=== PATIENT | male | born 1980 | race Caucasian/White ===

== ENCOUNTER 2017-03-11 20:22 | Inpatient (IN) | payer BC, OTHER ==
[~2017-03-11] VITALS: Ht 185.4 cm; Wt 79.4 kg
[2017-03-11] MEDS ORDERED: BUPRENORPHINE HCL 2 MG TAB.SUBL SL PRN (22:15)
[2017-03-11] MEDS ORDERED: HYDROXYZINE PAMOATE 25 MG CAPSULE PO PRN (22:15)
[2017-03-11] MEDS ORDERED: THIAMINE HCL 200 MG/2 ML VIAL IM ONE (22:15)
[2017-03-11] MEDS ORDERED: CLONIDINE HCL 0.1 MG TABLET PO PRN (22:15)
[2017-03-11] MEDS ORDERED: METHOCARBAMOL 750 MG TABLET PO PRN (22:15)
[2017-03-11] MEDS ORDERED: ONDANSETRON ODT 4 MG TAB.RAPDIS SL PRN (22:15)
[2017-03-11] MEDS ORDERED: IBUPROFEN 400 MG TABLET PO PRN (22:15)
[2017-03-11] MEDS ORDERED: MIRALAX 17 GM POWD.PACK PO PRN (22:15)
[2017-03-11] MEDS ORDERED: MAG HYDROX/AL HYDROX/SIMETH 30 ML LIQUID UDC PO PRN (22:15)
[2017-03-11] MEDS ORDERED: LOPERAMIDE HCL 2 MG CAPSULE PO PRN ×2 (22:15)
[2017-03-11] MEDS ORDERED: LORAZEPAM 2 MG/1 ML VIAL IM PRN (22:15)
[2017-03-11] MEDS ORDERED: DICYCLOMINE HCL 20 MG TABLET PO PRN (22:15)
[2017-03-11] MEDS ORDERED: LORAZEPAM 1 MG TABLET PO PRN ×2 (22:15)
[2017-03-11] MEDS ORDERED: MAGNESIUM HYDROXIDE 30 ML LIQUID UDC PO PRN (22:15)
[2017-03-11] MEDS ORDERED: diphenhydrAMINE 50 MG CAPSULE PO PRN (22:15)
[2017-03-11] MEDS ORDERED: ACETAMINOPHEN 325 MG TABLET PO PRN (22:15)
[2017-03-11 22:50] LABS: BASOPHILS # (AUTO) 0.1 K/uL (0.0-8.0); BASOPHILS % (AUTO) 0.9 % (0.0-2.0); EOSINOPHILS # (AUTO) 0.5 K/uL (0.0-0.7); EOSINOPHILS % (AUTO) 7.3 % (0.0-7.0); HEMATOCRIT 42.9 % (40-50); HEMOGLOBIN 14.5 G/DL (14.0-18.0); LYMPHOCYTES # (AUTO) 1.8 K/UL (0.8-4.8); LYMPHOCYTES % (AUTO) 28.5 % (20.5-51.5); MEAN CORPUSCULAR HEMOGLOBIN 31.5 UUG (27.0-31.0); MEAN CORPUSCULAR HGB CONC 34 g/dL (32.0-37.0); MEAN CORPUSCULAR VOLUME 93.4 FL (82.0-92.0); MONOCYTES % (AUTO) 15.8 % (0.0-11.0); NEUTROPHILS # (AUTO) 3.1 K/UL (1.8-8.9); NEUTROPHILS % (AUTO) 47.5 % (38.5-71.5); PLATELET COUNT (AUTO) 136 K/UL (150-450); RED BLOOD CELL COUNT(AUTO) 4.59 MIL/UL (4.7-6.1); WHITE BLOOD COUNT (AUTO) 6.5 K/UL (4.0-11.2)
[2017-03-11 23:18] LABS: ALANINE AMINOTRANSFERASE 78 U/L (16-63); ALKALINE PHOSPHATASE 57 U/L (50-136); AMYLASE 29 U/L (25-115); ASPARTATE AMINOTRANSFERASE 114 U/L (15-37); BILIRUBIN,TOTAL 0.7 mg/dL (0.2-1.0); CARBON DIOXIDE 34 mmol/L (21-32); CHLORIDE 100 mmol/L (98-107); CREATININE 1.3 mg/dL (0.6-1.3); GLUCOSE 75 mg/dL (74-106); LIPASE 62 U/L (73-393); MAGNESIUM 1.9 mg/dL (1.8-2.4); POTASSIUM 4.5 mmol/L (3.5-5.1); TOTAL PROTEIN, SERUM 7.4 g/dL (6.4-8.2); UREA NITROGEN, BLOOD 20 mg/dL (7-18)
[2017-03-11 23:19] LABS: ETHANOL < 3 MG/DL (0-0)
[2017-03-11 23:23] LABS: THYROID STIMULATING HORMONE 2.603 mIU/mL (0.358-3.740)
[2017-03-11] MEDS ORDERED: GABA800T2 PO (23:40)
[2017-03-11] MEDS ORDERED: OXCA300T PO (23:40)
[2017-03-11] MEDS ORDERED: ALBU0.63 NEB (23:49)
[2017-03-12] VITALS (7 sets, daily range): BP systolic 84–114; BP diastolic 56–73
[2017-03-12 00:40] LABS: BAND % (MANUAL) 2 % (0-10); EOSINOPHILS % (MANUAL) 4 % (0-8); LYMPHOCYTES % (MANUAL) 31 % (20-40); MONOCYTES % (MANUAL) 13 % (2-10); NEUTROPHILS % (MANUAL) 50 % (42-75)
[2017-03-12] MEDS ORDERED: TUBERCULIN,PURIF.PROT.DERIV. 5 TU/0.1 ML TEST ID ONE (09:00)
[2017-03-12] MEDS ORDERED: OXCARBAZEPINE 300 MG TABLET PO SCH (09:45)
[2017-03-12] MEDS ORDERED: DIAZEPAM 5 MG TABLET PO PRN (09:45)
[2017-03-12] MEDS ORDERED: DIAZEPAM 10 MG TABLET PO PRN ×2 (09:45)
[2017-03-12] MEDS ORDERED: ALBUTEROL SULFATE 2.5 MG/ 0.5 ML NEBU NEB PRN (09:45)
[2017-03-12 10:18] LABS: *AMPHETAMINE, URINE POSITIVE (NEGATIVE); *BARBITURATE, URINE POSITIVE (NEGATIVE); *CANNABINOID, URINE NEGATIVE (NEGATIVE); *COCCAINE, URINE NEGATIVE (NEGATIVE); *OPIATE, URINE POSITIVE (NEGATIVE); *PHENCYCLIDINE SCREEN,URINE NEGATIVE (NEGATIVE)
[2017-03-12] MEDS: GABAPENTIN 400 MG CAPSULE PO SCH ×3 (10:41→21:10)
[2017-03-12] MEDS: DIAZEPAM 10 MG TABLET PO SCH ×4 (10:41→21:11)
[2017-03-12] MEDS: FOLIC ACID 1 MG TABLET PO SCH (10:41)
[2017-03-12] MEDS: THIAMINE HCL 100 MG TABLET PO SCH (10:41)
[2017-03-12] MEDS: MULTIVITAMINS,THERAPEUTIC TABLET PO SCH (10:42)
[2017-03-12] MEDS ORDERED: DIAZEPAM 10 MG TABLET ONE (10:46)
[2017-03-12] MEDS: BUPRENORPHINE HCL 2 MG TAB.SUBL SL SCH ×3 (14:00→21:10)
[2017-03-12] MEDS: OXCARBAZEPINE 150 MG TABLET PO SCH (17:03)
[2017-03-13] VITALS: BP 108/66
[2017-03-13 04:00] VITALS: BP 104/72
[2017-03-13 08:00] VITALS: BP 127/74
[2017-03-13] MEDS: DIAZEPAM 10 MG TABLET PO SCH ×3 (08:44→20:57)
[2017-03-13] MEDS: MULTIVITAMINS,THERAPEUTIC TABLET PO SCH (08:44)
[2017-03-13] MEDS: GABAPENTIN 400 MG CAPSULE PO SCH ×3 (08:44→20:58)
[2017-03-13] MEDS: FOLIC ACID 1 MG TABLET PO SCH (08:45)
[2017-03-13] MEDS: BUPRENORPHINE HCL 2 MG TAB.SUBL SL SCH ×3 (08:45→20:58)
[2017-03-13] MEDS: THIAMINE HCL 100 MG TABLET PO SCH (08:45)
[2017-03-13] MEDS: OXCARBAZEPINE 150 MG TABLET PO SCH ×2 (08:45→17:18)
[2017-03-13 12:00] VITALS: BP 121/78
[2017-03-13 13:10] LABS: HEPATITIS B SURFACE AG Negative (Negative)
[2017-03-13 16:00] VITALS: BP 116/71
[2017-03-13 20:00] VITALS: BP 118/74
[2017-03-14] VITALS: BP 115/73
[2017-03-14 04:00] VITALS: BP 103/67
[2017-03-14 08:00] VITALS: BP 107/65
[2017-03-14] MEDS: OXCARBAZEPINE 150 MG TABLET PO SCH ×2 (08:57→16:42)
[2017-03-14] MEDS: GABAPENTIN 400 MG CAPSULE PO SCH ×3 (08:57→21:36)
[2017-03-14] MEDS: FOLIC ACID 1 MG TABLET PO SCH (08:58)
[2017-03-14] MEDS: MULTIVITAMINS,THERAPEUTIC TABLET PO SCH (08:58)
[2017-03-14] MEDS: DIAZEPAM 5 MG TABLET PO SCH ×4 (08:58→21:36)
[2017-03-14] MEDS: THIAMINE HCL 100 MG TABLET PO SCH (08:58)
[2017-03-14] MEDS ORDERED: BUPRENORPHINE HCL 2 MG TAB.SUBL SL SCH (09:00)
[2017-03-14 12:00] VITALS: BP 102/78
[2017-03-14] MEDS: BUPRENORPHINE HCL 2 MG TAB.SUBL SL SCH ×2 (15:05→21:37)
[2017-03-14 16:00] VITALS: BP 111/80
[2017-03-14 20:11] VITALS: BP 110/66
[2017-03-15] VITALS: BP 106/53
[2017-03-15 04:00] VITALS: BP 108/72
[2017-03-15 08:00] VITALS: BP 112/72
[2017-03-15] MEDS: GABAPENTIN 400 MG CAPSULE PO SCH ×3 (08:24→21:44)
[2017-03-15] MEDS: THIAMINE HCL 100 MG TABLET PO SCH (08:24)
[2017-03-15] MEDS: BUPRENORPHINE HCL 2 MG TAB.SUBL SL SCH ×3 (08:25→21:44)
[2017-03-15] MEDS: OXCARBAZEPINE 150 MG TABLET PO SCH ×2 (08:25→16:23)
[2017-03-15] MEDS: DIAZEPAM 5 MG TABLET PO SCH ×3 (08:25→21:44)
[2017-03-15] MEDS: FOLIC ACID 1 MG TABLET PO SCH (08:25)
[2017-03-15] MEDS: MULTIVITAMINS,THERAPEUTIC TABLET PO SCH (08:25)
[2017-03-15 12:00] VITALS: BP 97/56
[2017-03-15 16:00] VITALS: BP 116/65
[2017-03-15 20:00] VITALS: BP 117/77
[2017-03-16] VITALS: BP 102/73
[2017-03-16 04:00] VITALS: BP 104/72
[2017-03-16 08:00] VITALS: BP 99/64
[2017-03-16] MEDS: GABAPENTIN 400 MG CAPSULE PO SCH ×2 (08:22→14:00)
[2017-03-16] MEDS: FOLIC ACID 1 MG TABLET PO SCH (08:22)
[2017-03-16] MEDS: THIAMINE HCL 100 MG TABLET PO SCH (08:22)
[2017-03-16] MEDS: MULTIVITAMINS,THERAPEUTIC TABLET PO SCH (08:22)
[2017-03-16] MEDS: OXCARBAZEPINE 150 MG TABLET PO SCH ×2 (08:22→16:53)
[2017-03-16 08:24] LABS: ALANINE AMINOTRANSFERASE 64 U/L (16-63); ALKALINE PHOSPHATASE 48 U/L (50-136); ASPARTATE AMINOTRANSFERASE 41 U/L (15-37); BILIRUBIN,DIRECT < 0.1 mg/dL (0.0-0.2); BILIRUBIN,TOTAL 0.3 mg/dL (0.2-1.0); CARBON DIOXIDE 33 mmol/L (21-32); CHLORIDE 105 mmol/L (98-107); CREATININE 0.9 mg/dL (0.6-1.3); GLUCOSE 85 mg/dL (74-106); PHOSPHOROUS 4.4 mg/dL (2.5-4.9); POTASSIUM 4.1 mmol/L (3.5-5.1); TOTAL PROTEIN, SERUM 6.6 g/dL (6.4-8.2); UREA NITROGEN, BLOOD 11 mg/dL (7-18)
[2017-03-16] MEDS ORDERED: DIAZEPAM 5 MG TABLET PO SCH (09:00)
[2017-03-16] MEDS ORDERED: BUPRENORPHINE HCL 2 MG TAB.SUBL SL SCH (09:00)
[2017-03-16 12:00] VITALS: BP 113/76
== END 2017-03-16 17:00 | disposition left against medical advice (07) | DRG 894 ==
LOC: SRC 21:25
PROVIDERS: ADMIT Internal Medicine; ATTEND Internal Medicine
PROC: HZ2ZZZZ Detoxification Services for Substance Abuse Treatment (ICD-10-PCS; principal; 2017-03-11)
PROC: HZ31ZZZ Individual Counseling for Substance Abuse Treatment, Behavioral (ICD-10-PCS; 2017-03-14)
PROC: HZ41ZZZ Group Counseling for Substance Abuse Treatment, Behavioral (ICD-10-PCS; 2017-03-15)
DX: F10.230 Alcohol dependence with withdrawal, uncomplicated (principal); F13.230 Sedative, hypnotic or anxiolytic dependence with withdrawal, uncomplicated; Y90.9 Presence of alcohol in blood, level not specified; F11.23 Opioid dependence with withdrawal; G40.909 Epilepsy, unspecified, not intractable, without status epilepticus; Z79.899 Other long term (current) drug therapy; Z59.0 Homelessness; F17.210 Nicotine dependence, cigarettes, uncomplicated
CPT/HCPCS: 36415; 70030-TC; 80307; 80324; 80345; 80346; 80361; 83690; 83735; 84100; 84443; 85025; 86580; 86705; 87340; 87806; A4663; G0480; Q0162

== ENCOUNTER 2018-07-17 16:47 | Inpatient (IN) | payer BC, OTHER ==
[~2018-07-17] VITALS: Ht 185.4 cm; Wt 78.9 kg
[~2018-07-17 16:47] MED LIST: ALBU0.63 NEB; GABA800T2 PO; OXCA300T15 PO
--- NOTE | 2018-07-17 21:05 | NUR ---
PRE-ADMISSION NOTE Patient seen in intake office. First assessment done. Patient is alert and oriented x4. Patient is cooperative, with steady gate, and soft clear speech. Patient noted with moderate intoxication, drowsiness, restlessness, and fatigue. VS: T: 97.6, HR: 69, RR: 18, RA O2Sat: 98%, BP: 112/65, pain level: 0/10. Patient reports NKA. Patient denies Fall or Seizures History. Policy and rights explained to patient, patient verbalized understanding. Full assessment will be done on unit.
[2018-07-17 21:13] VITALS: BP 112/65
--- NOTE | 2018-07-17 21:13 | NUR ---
ADMISSION NOTE: The patient admitted on unit for Benzodiazepines and Opioid withdrawal on 07/17/2018 at 2113. Patient is alert and oriented x4. Patient is cooperative, with steady gate, and soft clear speech. Patient noted with moderate intoxication, drowsiness, restlessness, and fatigue. Patient reports NKA. Patient denies Fall or Seizures History. Patient reports Past Medical History: Anxiety, Depression, history of overdose with last episode 5 days ago :"Paramedics came to my house, and administered Narcan to me". Substance Use History: 1. Xanax- patient started using prescribed Xanax 7 months ago- Currently using 2 mg PO every day for the past 7 months. Last dose was 4 mg on 07/17/2018 at 1500. 2. Adderall - patient started using prescribed Adderall 7 months ago- Currently using 30 mg PO every day for the past 7 months. Last dose was 30 mg on 07/17/2018 at 1500. 3. Subutex - patient started using prescribed Subutex 7 months ago- Currently using 8 mg PO every day for the past 7 months. Last dose was 8 mg on 07/17/2018 at 1500. 4. Heroin - patient started using Heroin via IV 10 years ago- Currently using 1 gram via IV occasionally for the past two weeks. Last dose was I gram via IV on 07/12/2018. 5. Methamphetamine - patient started using Methamphetamine via IV 12 years ago- Currently using 1 gram via IV occasionally for the past two weeks. Last dose was I gram via IV on 07/12/2018. Patient reports Treatment History: 1."[facility]" for 7 days, [place], [place], 2."[facility]" for 30 days, [place], [place]. 3."[facility]", July, for 22 days. [place], [place]. 4."[facility]", October, for 45 days, [place]. Patient verbalized, ""My longest period of sobriety was seven months: 09/2014 to 04/2015". Patient reports, "I am feeling very sick if I am not using drugs, I experience anxiety, agitation, depression, irritation, nervousness, abdominal pain, nausea, vomiting, body pain, headache, dizziness, tremors, restlessness, and fatigue". Patient explained, "I came today because my life now is out of control: I am lost everything, and I am scared now of losing my life. I want to get sober to be productive and to save my life". Patient reports smoking history, "First smoking was in 1996. Currently I am smoking 1 pack every day". Smoking cessation education provided to patient. Patient verbalized understanding. Patient has no Primary Care Physician and Psychiatrist. Patient not brought home medications. Initial body assessment done. VS: T: 97.6, HR: 69, RR: 18, RA O2Sat: 98%, BP: 112/65, pain level: 0/10. Respirations are even and unlabored. Abdomen is soft, non-tender, bowel sounds are active in all four quadrants. Skin check done: Skin is warm, and dry to touch. Patient has right big toe and right ankle lateral abrasions. UDS Labs collected and sent to lab. Blood labs done. Encourage to intake fluids as tolerated. Encouraged to attend group activates. Safe and calm environment provided. All needs met. Safety measures in place: Call light within reach, bed is locked in the lowest position, padded bed rails up bilaterally. Will continue to monitor. Addendum: 07/18/18 at 1441 by AMY JOHNSON RN Update on Substance Use/Treatment History: Patient's UDS resulted positive for barbiturates. Per patient, he has not knowingly taken barbiturates. However, he states he was in an IOP in [place] (can't recall name) 2-3 weeks ago, and he believes he might have been given phenobarbital while there. He claims he was also given his prescription Adderall and Subutex while there.
[2018-07-17] MEDS ORDERED: MAGNESIUM HYDROXIDE 30 ML LIQUID UDC PO PRN (22:00)
[2018-07-17] MEDS ORDERED: DIAZEPAM 10 MG TABLET PO PRN ×2 (22:00)
[2018-07-17] MEDS ORDERED: LORAZEPAM 2 MG/1 ML VIAL IM PRN (22:00)
[2018-07-17] MEDS ORDERED: ONDANSETRON ODT 4 MG TAB.RAPDIS SL PRN (22:00)
[2018-07-17] MEDS ORDERED: LOPERAMIDE HCL 2 MG CAPSULE PO PRN ×2 (22:00)
[2018-07-17] MEDS ORDERED: DIAZEPAM 5 MG TABLET PO PRN (22:00)
[2018-07-17] MEDS ORDERED: ACETAMINOPHEN 325 MG TABLET PO PRN (22:00)
[2018-07-17] MEDS ORDERED: MAG HYDROX/AL HYDROX/SIMETH 30 ML LIQUID UDC PO PRN (22:00)
[2018-07-17] MEDS ORDERED: CLONIDINE HCL 0.1 MG TABLET PO PRN (22:00)
[2018-07-17] MEDS ORDERED: ONDANSETRON 4 MG/2 ML VIAL IM PRN (22:00)
[2018-07-17] MEDS ORDERED: IBUPROFEN 600 MG TABLET PO PRN (22:00)
[2018-07-17] MEDS ORDERED: Medication Not On Formulary EA (Gabapentin 800 MG) PO SCH (22:15)
[2018-07-17] MEDS ORDERED: ALBUTEROL SULFATE 2.5 MG/ 0.5 ML NEBU NEB PRN (22:15)
[2018-07-17 22:36] LABS: BASOPHILS % (AUTO) 0.6 % (0.0-2.0); EOSINOPHILS # (AUTO) 0.5 K/uL (0.0-0.7); EOSINOPHILS % (AUTO) 9.5 % (0.0-7.0); HEMATOCRIT 38.7 % (36.7-47.1); HEMOGLOBIN 13.1 g/dL (12.5-16.3); LYMPHOCYTES # (AUTO) 2.3 K/uL (20.0-40.0); LYMPHOCYTES % (AUTO) 43.8 % (20.5-51.5); MEAN CORPUSCULAR HEMOGLOBIN 32.1 uug (23.8-33.4); MEAN CORPUSCULAR HGB CONC 34 g/dL (32.5-36.3); MEAN CORPUSCULAR VOLUME 94.5 fL (73.0-96.2); MONOCYTES # (AUTO) 0.3 K/uL (2.0-10.0); MONOCYTES % (AUTO) 5.7 % (0.0-11.0); NEUTROPHILS # (AUTO) 2.2 K/uL (1.8-8.9); NEUTROPHILS % (AUTO) 40.4 % (38.5-71.5); PLATELET COUNT (AUTO) 285 K/uL (152-348); RED BLOOD CELL COUNT(AUTO) 4.09 MIL/uL (4.06-5.63); WHITE BLOOD COUNT (AUTO) 5.3 K/uL (3.6-10.2)
[2018-07-17 22:50] LABS: ETHANOL < 3 MG/DL (0-0)
[2018-07-17 22:52] LABS: ALANINE AMINOTRANSFERASE 67 U/L (16-63); ALKALINE PHOSPHATASE 53 U/L (50-136); ASPARTATE AMINOTRANSFERASE 24 U/L (15-37); BILIRUBIN,TOTAL 0.4 mg/dL (0.2-1.0); CARBON DIOXIDE 29 mmol/L (21-32); CHLORIDE 100 mmol/L (98-107); CREATININE 1.1 mg/dL (0.6-1.3); GLUCOSE 136 mg/dL (74-106); POTASSIUM 3.8 mmol/L (3.5-5.1); TOTAL PROTEIN, SERUM 7.3 g/dL (6.4-8.2); UREA NITROGEN, BLOOD 14 mg/dL (7-18)
[2018-07-17] MEDS ORDERED: OXCARBAZEPINE 300 MG TABLET PO ONE (23:00)
[2018-07-17 23:33] LABS: THYROID STIMULATING HORMONE 2.046 mIU/mL (0.358-3.740)
[2018-07-17] MEDS: GABAPENTIN 400 MG CAPSULE PO SCH (23:53)
[2018-07-18] VITALS: BP 92/57
[2018-07-18 01:49] LABS: *AMPHETAMINE, URINE POSITIVE (NEGATIVE); *BARBITURATE, URINE POSITIVE (NEGATIVE); *CANNABINOID, URINE NEGATIVE (NEGATIVE); *COCCAINE, URINE NEGATIVE (NEGATIVE); *OPIATE, URINE NEGATIVE (NEGATIVE); *PHENCYCLIDINE SCREEN,URINE NEGATIVE (NEGATIVE)
--- NOTE | 2018-07-18 04:00 | NUR ---
VS REFUSED, COWS/CIWA DEFERRED VS refused and COWS/CIWA deferred for sleep. Patient will be assessed when patient is awake. Respirations are unlabored and even. RR=14. Safe and calm environment provided. All needs met. Safety measures in place: Call light within reach, bed is locked in the lowest position, and padded bed rails up bilaterally. Will continue to monitor.
--- NOTE | 2018-07-18 06:49 | NUR ---
END OF SHIFT NOTE: This report given for patient, 37 year male, admitted for medical supervision from Benzodiazepines and Opioid withdrawal on 07/17/2018 at 2113, ordered 4 Day Valium taper, and 3 day Subutex Taper. Patient is alert and oriented x4, cooperative, soft clear speech, and with steady gate. Patient is fully ambulatory with low VTE. Patient admitted with moderate intoxication, drowsiness, restlessness, and fatigue. COWS/CIWA deferred at 0400 for sleep. Patient will be assessed when patient is awake. Patient reports NKA. Patient denies Fall or Seizures History. Past Medical History: Anxiety, Depression, History of overdose with last episode 5 days ago. VSWNL. Respirations are even and unlabored. Abdomen is soft and non-tender, bowel sounds are active in all four quadrants. Skin is warm, and dry to touch. Patient has right big toe and right ankle lateral abrasions. Patient slept for 5 hours, intake 500 ml, output: Voided x1. No PRN Medications administrated. Encouraged to intake fluids as tolerated. Encouraged to attend group activates. Safe and calm environment provided. All needs met. Safety measures in place: Call light within reach, bed is locked in the lowest position, bed rails up bilaterally. Endorsed to day shift nurse.
--- NOTE | 2018-07-18 07:30 | NUR ---
START OF SHIFT Pt 37 y/o male admitted for benzo and opioid withdrawal. Pt received in room on bed with eyes closed resting, but easily arousable to name. Pt alert and oriented to name, place, and time. perrla. Skin warm and moist to touch. Respirations even unlabored. Appears disheveled with hair uncombed. Clothes scattered throughout the room. Encouraged to maintain hygiene. Anxious and restless. Fidgety. Low motivation for self care. It was reported that pt slept for 5 hours last night. Last cows and ciwa deferred @ 0400. pt is on a 4 day valium taper and is on day1. Pt also on a 3 day subutex taper and is on day 1. Bed on lowest position with side rails x2 up for safety. Call light within reach.
[2018-07-18 08:00] VITALS: BP 92/60
[2018-07-18] MEDS ORDERED: PNEUMOCOCCAL 23-VAL P-SAC VAC 0.5 ML VIAL IM ONE (09:00)
[2018-07-18] MEDS ORDERED: TUBERCULIN,PURIF.PROT.DERIV. 5 TU/0.1 ML TEST ID ONE (09:00)
[2018-07-18] MEDS ORDERED: INFLUENZA VACCINE 2018-2019 0.5 ML DISP.SYRIN IM ONE (09:00)
[2018-07-18] MEDS ORDERED: 4 DAY TAPER VALIUM-SERENITY PROTOCOL PO PRN (09:00)
[2018-07-18] MEDS ORDERED: 3 DAY TAPER BUPRENORPHINE -SERENITY PROTOCOL SL PRN (09:00)
--- NOTE | 2018-07-18 09:00 | NUR ---
COWS CIWA ASSESSMENT cows=7 ciwa=10. Anxious and restless. Not able to lay/sit still. Pressured speech. Bilateral hand tremors. Irritable and agitated. Complaints of generalized discomfort.
--- NOTE | 2018-07-18 09:00 | NUR ---
SUBUTEX Subutex dose held cows=7 and pt refused to have dose given at this time.
[2018-07-18] MEDS: GABAPENTIN 400 MG CAPSULE PO SCH ×3 (09:45→17:07)
[2018-07-18] MEDS: MULTIVITAMINS,THERAPEUTIC TABLET PO SCH (09:46)
[2018-07-18] MEDS: DIAZEPAM 10 MG TABLET PO SCH ×3 (09:46→20:49)
[2018-07-18] MEDS: OXCARBAZEPINE 300 MG TABLET PO SCH ×2 (09:46→17:06)
[2018-07-18] MEDS: BUPRENORPHINE HCL 2 MG TAB.SUBL SL SCH ×2 (11:16→20:49)
--- NOTE | 2018-07-18 11:19 | NUR ---
LATE MEDICATION Subutex dose given. Cows=14. Anxious and restless. Very irritable and agitated. Complaints of intermittent chills and perspiration. Body aches. Generalized discomfort.
[2018-07-18 12:00] VITALS: BP 99/64
--- NOTE | 2018-07-18 12:00 | NUR ---
COWS CIWA ASSESSMENT cows=10 ciwa=10. Bilateral hand tremors noted. Anxious and restless. Pressured speech. Fidgety. Complaints of intermittent perspiration and generalized discomfort.
--- NOTE | 2018-07-18 14:20 | NUR ---
Therapist prompted client to attend group therapy.
[2018-07-18 16:00] VITALS: BP 99/77
--- NOTE | 2018-07-18 16:00 | NUR ---
COWS CIWA ASSESSMENT cows=10 ciwa=10. Anxious and restless. Pressured speech. Irritable and agitated. Bilateral hand tremors noted. Complaints of intermittent perspiration. Complaints of generalized discomfort.
--- NOTE | 2018-07-18 18:40 | NUR ---
END OF SHIFT Pt 37 y/o male admitted for benzo and opioid withdrawal. Pt alert and oriented to name, place, and time. Perrla. Skin warm and moist to touch. Respirations even unlabored. Appears disheveled with hair uncombed. Empty drink bottles and food wrappings scattered throughout the room. Encouraged to maintain hygiene. Anxious and restless. Pacing. Isolative with minimal peer interaction. Pt attended group activity. Pt is on a 4 day valium taper and is on day 1. Pt also on a 3 day subutex taper and is on day 1. Ciwa =10 @1600. Cow=10 @1600. Bed on lowest position with side rails x2 up for safety. Call light within reach.
--- NOTE | 2018-07-18 18:51 | NUR ---
START OF SHIFT NOTE: The patient, 37 year male, continues 4 Day Valium and 3 Days Subutex Tapers ordered for Benzodiazepines and Opioid withdrawal. Today is first day. Patient tolerated well. Withdrawal symptoms will be monitoring closely. Patient is alert and oriented x4, calm and cooperative. Mood anxious, and flat affect. The most recent COWS=10 at 1600, CIWA=10 at 1600: Patient noted with moderate symptoms of withdrawal such as anxiety, agitation, irritability, nervousness, nasal congestion, generalized mild body aches, abdominal cramps, bilateral tremors, that can be felt but not observe, restlessness, and fatigue. PRN Medications was not administrated during day shift, per day shift nurse report. Patient attended group activities. Encouraged to intake fluids as tolerated. Encouraged to attend group activities. Safe and calm environment provide. All needs met. Safety measures in place: Call light within reach, bed is in lowest position and locked, padded bed rails up x2. Will continue to monitor closely.
[2018-07-18 20:00] VITALS: BP 108/68
--- NOTE | 2018-07-18 20:00 | NUR ---
COWS/CIWA ASSESSMENT COWS=12, CIWA=11. Patient noted anxious, agitated, irritated, nervousness, with bilateral tremors, sweating, restlessness, myalgia, and fatigue. Scheduled and PRN Medications was discussed with patient, and will be administered for managed withdrawal symptoms, as ordered. Safe and calm environment provided. All needs met. Safety measures in place: Call light within reach, bed is locked in the lowest position, padded bed rails up bilaterally. Endorsed by outgoing day shift nurse. Will continue to monitor.
[2018-07-18] MEDS: METHOCARBAMOL 750 MG TABLET PO PRN (23:21)
[2018-07-18] MEDS: HYDROXYZINE PAMOATE 25 MG CAPSULE PO PRN (23:21)
--- NOTE | 2018-07-18 23:21 | NUR ---
PRN VISTARIL PO AND PRN ROBAXIN PO ADMINISTRATION PRN Vistaril 50 mg PO administered for anxiety at 2321, PRN Robaxin 750 mg PO administered for myalgia at 2321 as ordered. Patient tolerated well. Encouraged to intake fluids as tolerated. Re-assessment will be done in one hour. Safe and calm environment provide. All needs met. Safety measures in place: Call light within reach, bed is in lowest position and locked, padded bed rails up x2. Will continue to monitor closely.
[2018-07-18] MEDS ORDERED: diphenhydrAMINE 50 MG CAPSULE PO ONE (23:30)
[2018-07-19] VITALS: BP 106/84
--- NOTE | 2018-07-19 | NUR ---
COWS/CIWA ASSESSMENT COWS=12,CIWA=12. Patient noted anxious, agitated, irritated, nervousness, with bilateral tremors, sweating, myalgia, restlessness, and fatigue. PRN Medications discussed with patient, and will be administered for anxiety and myalgia, as ordered. Safe and calm environment provided. All needs met. Safety measures in place: Call light within reach, bed is locked in the lowest position, padded bed rails up bilaterally. Endorsed by outgoing day shift nurse. Will continue to monitor. COWS/CIWA ASSESSMENT COWS=12, CIWA=12. Patient noted anxious, agitated, irritated, nervousness, with bilateral tremors, sweating, myalgia, restlessness, and fatigue. PRN Vistaril 50 mg PO administered for anxiety at 2321, PRN Robaxin 750 mg PO administered for myalgia at 2321 as ordered Patient tolerated well. Encouraged to intake fluids as tolerated. Re-assessment will be done in one hour. Safe and calm environment provide. All needs met. Safety measures in place: Call light within reach, bed is in lowest position and locked, padded bed rails up x2. Will continue to monitor closely.
--- NOTE | 2018-07-19 00:21 | NUR ---
PRN RE-ASSESSMENT Patient is sleeping on her side. RR=15. Respirations are even and unlabored. PRN Vistaril 50 mg PO administered for anxiety at 2321 and PRN Robaxin 750 mg PO administered for myalgia at 2321 were effective. Safe and calm environment provide. All needs met. Safety measures in place: Call light within reach, bed is in lowest position and locked, padded bed rails up x2. Will continue to monitor closely.
--- NOTE | 2018-07-19 04:00 | NUR ---
VS REFUSED, COWS/CIWA DEFERRED VS refused and COWS/CIWA deferred for sleep. Patient will be assessed when patient is awake. Respirations are unlabored and even. RR=16. Safe and calm environment provided. All needs met. Safety measures in place: Call light within reach, bed is locked in the lowest position, and padded bed rails up bilaterally. Will continue to monitor.
--- NOTE | 2018-07-19 07:05 | NUR ---
END OF SHIFT NOTE: This report given for patient, 37 year old male. The patient presented for Benzodiazepines and Opioid withdrawal, second day continues ordered 4 Day Valium and 3 Days Subutex Tapers, which tolerated well. Withdrawal symptoms and VS was closely monitored. Initial COWS=12, CIWA=11 at 2000. Last COWS=12,CIWA=12 at 0000. VS refused and COWS/CIWA deferred at 0400 for patient sleep. During cutter machine patient experienced moderate symptoms of withdrawal such as anxiety, agitation, irritability, nervousness, nasal congestion, generalized mild body aches, stomach cramps, bilateral tremors, restlessness, sweating, myalgia, and fatigue. PRN Vistaril 50 mg PO administered for anxiety at 2321 and PRN Robaxin 750 mg PO administered for myalgia at 2321, and were effective. Patient slept for 7 hours, intake 500 ml, and voided x1. Encouraged to intake fluids as tolerated. Encouraged to attend group activities. Safe and calm environment provide. All needs met. Safety measures in place: Call light within reach, bed is in lowest position and locked, padded bed rails up x2. Endorsed to day shift nurse.
[2018-07-19 07:06] LABS: HEPATITIS B SURFACE AG Negative (Negative)
[2018-07-19 08:00] VITALS: BP 90/62
--- NOTE | 2018-07-19 08:00 | NUR ---
START OF SHIFT Pt 37 y/o male admitted for benzo and opioid withdrawal. Pt received in room on with eyes closed resting, but arousable to name. Pt alert and oriented to name, place, and time. Perrla. Respirations even and unlabored. Appears disheveled and unkempt. Empty drink bottles scattered throughout the room. Encouraged to maintain hygiene. Anxious and restless. Pressured speech. Complaints of intermittent perspiration and chills. Fidgety. Bilateral hand tremors. Complaints of generalized discomfort. It was reported that pt slept for 7 hours last night. Last ciwa=12 cows=12 @0000. Pt is on a 4 day valium taper and is on day 2. Pt also on a 3 day subutex taper and is on day 2. Cows=12 ciwa=10 @ 0800. Bed on lowest position with side rails x 2 up for safety. Call light within reach.
[2018-07-19] MEDS: MULTIVITAMINS,THERAPEUTIC TABLET PO SCH (09:00)
[2018-07-19] MEDS: GABAPENTIN 400 MG CAPSULE PO SCH ×3 (09:00→16:38)
[2018-07-19] MEDS: OXCARBAZEPINE 300 MG TABLET PO SCH ×2 (09:00→16:38)
[2018-07-19] MEDS: BUPRENORPHINE HCL 2 MG TAB.SUBL SL SCH ×3 (09:00→20:50)
[2018-07-19] MEDS: DIAZEPAM 5 MG TABLET PO SCH ×4 (09:00→20:50)
[2018-07-19 12:00] VITALS: BP 117/62
--- NOTE | 2018-07-19 12:00 | NUR ---
COWS CIWA ASSESSMENT cows=12 ciwa=10. Bilateral hand tremors. Intermittent perspiration and chills. Body aches. Complaints of generalized body aches. Anxious and restless. Pressured speech.
[2018-07-19 16:00] VITALS: BP 106/68
--- NOTE | 2018-07-19 16:00 | NUR ---
COWS CIWA ASSESSMENT cows=12 ciwa=10. Anxious and restless. Pressured speech. Bilateral hand tremors noted. Irritable. Intermittent perspiration. .
--- NOTE | 2018-07-19 18:31 | NUR ---
END OF SHIFT Pt 37 y/o male admitted for benzo and opioid withdrawal. Pt alert and oriented to name, place, and time. Perrla. Skin warm and moist to touch. Respirations even unlabored. Appears disheveled with hair uncombed. Empty drink bottles and food wrappings scattered throughout the room. Encouraged to maintain hygiene. Anxious and restless. Pacing. Bilateral hand tremors. Pressured speech. Irritable. Minimal peer interaction. Pt attended group activity. Pt is on a 4 day valium taper and is on day 2. Pt also on a 3 day subutex taper and is on day 2. Ciwa =10 @1600. Cow=12 @1600. Bed on lowest position with side rails x2 up for safety. Call light within reach.
--- NOTE | 2018-07-19 19:10 | NUR ---
Start of Shift Received 37 year male patient admitted to [facility] for medically supervised withdrawal from Benzodiazepines and Opiates. Currently on day 2 of 4 day Valium and 4 day Subutex tapers which he is tolerating well. Last COWS 10 at 1600. Pt did not receive any PRN medications on day shift. Pt is awake, alert, and oriented. Pt showered. Pt anxious, agitated, pacing, withdrawn, and isolative, easily distracted and cannot sit still. Encouraged pt to participate in group, declined. States he spoke to his girlfriend and he doesnt want to be around anybody right now. Bed is low, side rails up x 2, and call forde in reach. Will continue to monitor.
[2018-07-19 20:00] VITALS: BP 101/67
--- NOTE | 2018-07-19 20:00 | NUR ---
CIWA 13/COWS 13 Pt up pacing, anxious, agitated, easily distracted, withdrawn, and unable to sit still.
--- NOTE | 2018-07-20 00:02 | NUR ---
CIWA/COWS deferred/Vitals refused CIWA/COWS deferred and Vitals refused. Pt is resting with eyes closed. Respirations even and unlabored. Continue to monitor.
--- NOTE | 2018-07-20 04:00 | NUR ---
CIWA/COWS deferred/Vitals refused CIWA/COWS deferred and Vitals refused. Pt is resting with eyes closed. Respirations even and unlabored. Continue to monitor.
--- NOTE | 2018-07-20 06:53 | NUR ---
End of Shift Endorsing 37 year male patient admitted to [facility] for medically supervised withdrawal from Benzodiazepines and Opiates. Currently on day 3 of 4 day Valium and day 3 of 3 day Subutex taper which he is tolerating well. Last COWS 13/CIWA 13 at 1999. Pt did not receive any PRN medications on night order selector. Pt did participate in the evening activities. PO intake 950 ml, voided x 2, BM x 0, and slept 6 hours. Pt in bed resting with eyes closed. Respirations are even and unlabored. Bed is low, side rails up x 2, and call forde in reach.
--- NOTE | 2018-07-20 07:11 | NUR ---
Start of Shift Pt. is a 37 y/o male admitted for the medically managed withdrawal from Benzodiazepines and Opiate. Pt. was also using methamphetamines, along with his other drug use. Pt. was placed on a 4 day valium taper, and a 3 day subutex taper to manage his withdrawal symptoms. Endorse from previous shift pt. presented with anxiety, restlessness, agitation, and tremors. Received pt. in room. Pt. laying in bed with eyes closed. No signs of distress noted. Safety measures in place. Will continue to monitor pt.s behavior for safety.
[2018-07-20 08:00] VITALS: BP 107/67
--- NOTE | 2018-07-20 08:00 | NUR ---
COWS/CIWA Assessment COWS of 12 and CIWA of 12. Pt. in room presenting with anxiety, restlessness, tremors, diaphoresis and flushed facial skin. Will give medications as ordered. Will continue to monitor pt.'s behavior for safety.
[2018-07-20] MEDS ORDERED: BUPRENORPHINE HCL 2 MG TAB.SUBL SL SCH (09:00)
[2018-07-20] MEDS: DIAZEPAM 5 MG TABLET PO SCH ×3 (09:14→20:57)
[2018-07-20] MEDS: GABAPENTIN 400 MG CAPSULE PO SCH ×3 (09:14→16:01)
[2018-07-20] MEDS: OXCARBAZEPINE 300 MG TABLET PO SCH ×2 (09:14→16:01)
[2018-07-20] MEDS: MULTIVITAMINS,THERAPEUTIC TABLET PO SCH (09:14)
[2018-07-20 12:00] VITALS: BP 110/62
--- NOTE | 2018-07-20 12:00 | NUR ---
COWS/CIWA Assessment COWS of 11 and CIWA of 12. Pt. in room presenting with anxiety, restlessness, tremors, diaphoresis and flushed facial skin. Pt. compliant with medication administration and treatment plan. Will continue to monitor pt.'s behavior for safety.
[2018-07-20 16:00] VITALS: BP 100/56
--- NOTE | 2018-07-20 16:00 | NUR ---
COWS/CIWA Assessment COWS of 11and CIWA of 12. Pt. in room presenting with anxiety, restlessness, tremors, diaphoresis and flushed facial skin. Pt. compliant with treatment plan and medication administration. Will continue to monitor pt.'s behavior for safety.
--- NOTE | 2018-07-20 19:00 | NUR ---
Start of Shift Received 37 year old male patient admitted 07/17/18 to [facility] for medically supervised withdrawal from Benzodiazepines and Opiates. Pt completed 3 day Subutex taper which he tolerated well. Continues on day 3 of 4 day Valium taper, tolerating well. Last CIWA 14 and COWS 11 @ 1600. Pt did not receive any PRN medications on day shift. Pt unkempt in dirty room withdrawn, isolative, noted with anxiety, agitation, flushed, distracted, and guarded. Bed low, side rails up x 2, and call forde in reach. Will continue encourage participation and monitor.
--- NOTE | 2018-07-20 19:04 | NUR ---
End of Shift Pt. is a 37 y/o male admitted for the medically managed withdrawal from Benzodiazepines and Opiate. Pt. was also using methamphetamines, along with his other drug use. Pt. was placed on a 4 day valium taper, and a 3 day subutex taper to manage his withdrawal symptoms. Pt. completed his subutex taper this morning. Throughout shift pt. presented with anxiety, restlessness, agitation, and tremors. Pt. compliant with medication regiment and treatment plan. Safety measures in place. Will endorse pt.s care to oncoming shift.
[2018-07-20 20:00] VITALS: BP 113/78
--- NOTE | 2018-07-20 20:00 | NUR ---
CIWA 14/COWS 11 Pt unkempt, withdrawn, anxiety, restlessness, agitation, flushed, and tremors
--- NOTE | 2018-07-21 | NUR ---
CIWA and COWS deferred/Vitals refused Pt in resting with eyes closed. Respirations even and unlabored. CIWA/COWS deferred and pt refused vitals. Will continue to monitor.
--- NOTE | 2018-07-21 04:08 | NUR ---
CIWA and COWS deferred/Vitals refused Pt in resting with eyes closed. Respirations even and unlabored. CIWA/COWS deferred and pt refused vitals. Will continue to monitor.
--- NOTE | 2018-07-21 06:45 | NUR ---
End of Shift Endorsing 37 year old male patient admitted 07/17/18 to [facility] for medically supervised withdrawal from Benzodiazepines and Opiates. Pt currently on day 4 of 4 day Valium taper which he is tolerating well. Last CIWA 14 and COWS 11 @ 1999. Pt did not receive any PRN medications on casino shift manager. Pt remained in room with the exception to smoke. PO intake 1787 ml, voided x 3, BM x 1, and slept 6 hours. Bed low, side rails up x 2, and call forde in reach.
--- NOTE | 2018-07-21 07:30 | NUR ---
START OF SHIFT NOTE Received report from night nurse, 37 year old male admitted for Benzo/Opioids withdrawal. Patient completed his 4 days Subutex taper and continue with 4 Valium taper tolerating well. Per endorsement did not receive any PRN medications, Last CIWA-14, COWS-11, slept for 6 hours. received patient alert oriented x4. Breathing normal no SOB noted. Skin intact warm and dry to touch. Educated patient current plan of the day and medication regimen, patient verbalized understanding. All safety measures in place. Will cont with plan of care.
[2018-07-21 08:00] VITALS: BP 108/63
[2018-07-21] MEDS: OXCARBAZEPINE 300 MG TABLET PO SCH ×2 (08:41→16:05)
[2018-07-21] MEDS: GABAPENTIN 400 MG CAPSULE PO SCH ×3 (08:41→16:05)
[2018-07-21] MEDS: MULTIVITAMINS,THERAPEUTIC TABLET PO SCH (08:41)
[2018-07-21] MEDS: DIAZEPAM 5 MG TABLET PO SCH ×2 (08:41→21:37)
--- NOTE | 2018-07-21 08:41 | NUR ---
CIWA/COWS ASSESSMENT CIWA-10, COWS-8, patient presented with flat facial expression, anxious, agitated, restless, diaphoretic. Patient was given his schedule medication. Will cont to monitor.
[2018-07-21 08:45] LABS: BASOPHILS % (AUTO) 0.8 % (0.0-2.0); EOSINOPHILS # (AUTO) 0.3 K/uL (0.0-0.7); EOSINOPHILS % (AUTO) 7.1 % (0.0-7.0); HEMATOCRIT 39.5 % (36.7-47.1); HEMOGLOBIN 13.8 g/dL (12.5-16.3); LYMPHOCYTES # (AUTO) 1.7 K/uL (20.0-40.0); LYMPHOCYTES % (AUTO) 41.2 % (20.5-51.5); MEAN CORPUSCULAR HEMOGLOBIN 33.3 uug (23.8-33.4); MEAN CORPUSCULAR HGB CONC 35 g/dL (32.5-36.3); MEAN CORPUSCULAR VOLUME 95.3 fL (73.0-96.2); MONOCYTES # (AUTO) 0.3 K/uL (2.0-10.0); MONOCYTES % (AUTO) 8.6 % (0.0-11.0); NEUTROPHILS # (AUTO) 1.7 K/uL (1.8-8.9); NEUTROPHILS % (AUTO) 42.3 % (38.5-71.5); PLATELET COUNT (AUTO) 266 K/uL (152-348); RED BLOOD CELL COUNT(AUTO) 4.14 MIL/uL (4.06-5.63)
[2018-07-21 08:55] LABS: BILIRUBIN,DIRECT 0.1 mg/dL (0.0-0.2); BILIRUBIN,TOTAL 0.4 mg/dL (0.2-1.0); CREATININE 1.1 mg/dL (0.6-1.3); POTASSIUM 4.2 mmol/L (3.5-5.1); TOTAL PROTEIN, SERUM 6.8 g/dL (6.4-8.2)
[2018-07-21 12:00] VITALS: BP 113/77
--- NOTE | 2018-07-21 12:00 | NUR ---
CIWA/COWS ASSESSMENT COWS-10, CIWA-11, patient reported anxiety, agitation, restless, bilateral hand tremors, runny nose, stomach cramps, chills, sweats, patient is due for schedule medications for managed withdrawal symptoms. Patient went down for smoke. Will cont to monitor.
[2018-07-21] MEDS ORDERED: DIAZEPAM 2 MG TABLET PO PRN (12:15)
[2018-07-21 16:00] VITALS: BP 99/61
--- NOTE | 2018-07-21 19:02 | NUR ---
END OF SHIFT NOTE Gave report to night nurse, 37 year old male admitted for Benzo/Opioids withdrawal. Patient completed his 3 days Subutex taper and continues with 4 days Valium taper tolerating well. Patient presented with flat facial expression, anxious, agitated, disheveled, empty bottles and food wraps on the floor, odors, encourage to maintain hygiene. Encourage patient to attend groups activities to learn new coping skills. Last noted CIWA 10, COWS-8. All needs attended to promptly. Endorse patient to night nurse in stable condition.
--- NOTE | 2018-07-21 19:10 | NUR ---
Start of Shift Received 37 year old male patient admitted 07/17/18 to [facility] for medically supervised withdrawal from Benzodiazepines and Opiates. Pt currently on day 4 of a 4 day Valium taper which he is tolerating well. Last CIWA 10 and COWS 8 @ 1600. Pt did not receive any PRN medications on day shift. Pt is unkempt and odorous. Pt is anxious, agitated, fidgety, flat affect, and withdrawn. Is participating in activates at this time. Bed is low, side rails up x 2, and call forde in reach. Will continue to monitor.
--- NOTE | 2018-07-21 20:00 | NUR ---
CIWA 10/COWS 9 Pt is anxious, agitated, fidgety, flat affect, restless, and withdrawn
[2018-07-21 20:03] VITALS: BP 111/74
--- NOTE | 2018-07-21 23:52 | NUR ---
PRN Clonidine/Vistaril Pt anxious, agitated, restless, and pacing. PRN Clonidine and Vistaril given per order. Will monitor effect.
[2018-07-21] MEDS: HYDROXYZINE PAMOATE 25 MG CAPSULE PO PRN (23:55)
[2018-07-22] VITALS: BP 119/82
--- NOTE | 2018-07-22 | NUR ---
CIWA 10/COWS 12 Pt is anxious, agitated, fidgety, flat affect, restless, and racing thoughts
--- NOTE | 2018-07-22 00:52 | NUR ---
Reassess PRN Clonidine/Vistaril Medication effective. Pt resting with eyes closed. Respirations are even and unlabored. Continue to monitor.
--- NOTE | 2018-07-22 04:00 | NUR ---
CIWA and COWS deferred/Vitals refused Pt in resting with eyes closed. Respirations even and unlabored. CIWA/COWS deferred and pt refused vitals. Will continue to monitor.
--- NOTE | 2018-07-22 06:53 | NUR ---
End of Shift Endorsing 37 year old male patient admitted 07/17/18 to [facility] for medically supervised withdrawal from Benzodiazepines and Opiates. Pt completed a 4 day Valium taper 07/21/18 which he is tolerated well. Last CIWA 10 and COWS 12 @0000. Pt received PRN Clonidine and Vistaril on night shift supervisor. PO intake 736 ml, voided x1, BM x 0, and slept 4 hours. Bed is low, side rails up x 2, and call forde in reach.
--- NOTE | 2018-07-22 07:30 | NUR ---
START OF SHIFT NOTE Received report from night nurse, 37 year old male admitted for Benzo/Opioids withdrawal. Patient completed his 4 days Subutex taper and continue with 4 Valium taper tolerating well. Per endorsement received PRN Clonidine, Vistaril, effective per night nurse, Last CIWA-10, COWS-12, slept for 4 hours. Received patient asleep responsive to verbal and tactile stimuli. Breathing normal no SOB noted. Skin intact warm and dry to touch. All safety measures in place. Will cont with plan of care.
[2018-07-22 08:00] VITALS: BP 95/62
--- NOTE | 2018-07-22 08:00 | NUR ---
CIWA/COWS ASSESSMENT CIWA-11, COWS-9, patient presented with flat facial expression, fatigue, anxious, agitated, restless, diaphoretic, bilateral hand tremors, anhedonia, unkept room. Patient was given his schedule medication. Will cont to monitor.
[2018-07-22] MEDS: GABAPENTIN 400 MG CAPSULE PO SCH ×3 (08:33→16:36)
[2018-07-22] MEDS: MULTIVITAMINS,THERAPEUTIC TABLET PO SCH (08:33)
[2018-07-22] MEDS: OXCARBAZEPINE 300 MG TABLET PO SCH ×2 (08:33→16:36)
--- NOTE | 2018-07-22 12:00 | NUR ---
CIWA/COWS ASSESSMENT CIWA-8, COWS-7, patient reported increased anxiety, agitation, restless, diaphoretic, bilateral hand tremors, fatigue. Will cont to monitor.
[2018-07-22 12:12] VITALS: BP 109/70
[2018-07-22] MEDS ORDERED: METH-406 PO (13:07)
[2018-07-22] MEDS ORDERED: CLON0.1T14 PO (13:07)
[2018-07-22] MEDS ORDERED: IBUP-1955 PO (13:07)
[2018-07-22] MEDS ORDERED: HYDR-3895 PO (13:07)
[2018-07-22] MEDS ORDERED: OXCA300T15 PO (13:07)
[2018-07-22] MEDS ORDERED: GABA800T2 PO (13:07)
[2018-07-22 16:00] VITALS: BP 108/75
--- NOTE | 2018-07-22 19:10 | NUR ---
END OF SHIFT NOTE Gave report to night nurse, Patient admitted for Benzo/Opioids withdrawal and completed his Valium and Subutex taper tolerated well. Patient received his scheduled medications patient did not request for any PRN medications. Patient presented with flushed face, poor eye contact, anhedonia, anxiety, agitation, restless, fatigue, bilateral hand tremors. Patient noted attending groups activities and interacting with peers. Patient was encouraged adequate PO fluid intake as tolerated, patient encouraged to develop coping skills and utilization of non pharmacological interventions. Encouraged patient to participates in groups activities. Vital signs WNL. Patient set for discharge in AM. Last CIWA-6, COWS-5. Patient denies any SI/HI. All needs attended. Endorse care to night nurse.
--- NOTE | 2018-07-22 19:30 | NUR ---
Start of shift note Received report from day shift nurse. Patient is a 37 year old male admitted for Heroin and Benzodiazepine withdrawal. Patient is medically cleared to be discharge tomorrow. Patient completed Valium and Subutex taper. Patient did not require PRN medication. Last COWS 5 and CIWA 6. Patient at the group at this time. Patient's room dirty, bed is messy and clothes everywhere in the room. Safety measures in place. Call light in reach. Will continue to monitor
[2018-07-22 20:00] VITALS: BP 122/74
--- NOTE | 2018-07-22 20:00 | NUR ---
COWS and CIWA assessment Patient reports anxiety, restlessness , generalized body aches and intermittent sweating. COWS 7 and CIWA 5.
[2018-07-22] MEDS ORDERED: diphenhydrAMINE 50 MG CAPSULE PO PRN (22:45)
[2018-07-22] MEDS: HYDROXYZINE PAMOATE 25 MG CAPSULE PO PRN (22:53)
[2018-07-22] MEDS: METHOCARBAMOL 750 MG TABLET PO PRN (22:53)
--- NOTE | 2018-07-22 22:53 | NUR ---
PRN Robaxin, Vistaril and one time Benadryl administration Patient reports anxiety, body aches and difficulty falling asleep. Will monitor for effectiveness
--- NOTE | 2018-07-22 23:53 | NUR ---
PRN Robaxin, Vistaril and Benadryl re-assessment Patient lying in bed with eyes closed. Respiration even and unlabored. No facial grimacing. Will continue to monitor.
--- NOTE | 2018-07-23 | NUR ---
COWS and CIWA deferred Patient lying in bed with eyes closed. Respiration even and unlabored. VS refused. Will continue to monitor
--- NOTE | 2018-07-23 04:00 | NUR ---
COWS and CIWA deferred Patient lying in bed with eyes closed. Respiration even and unlabored. VS refused. Will continue to monitor
--- NOTE | 2018-07-23 07:11 | NUR ---
End of shift note Patient slept 6 hours. Fluid intake 575 ml. Voided x 2. BM x 1. Patient is medically cleared to be discharge today. Patient completed Valium and Subutex taper. Patient reported anxiety, restlessness , generalized body aches and intermittent sweating. Patient was given one time Benadryl for difficulty falling asleep, Vistaril for anxiety due to his discharge and Robaxin for generalized body aches. Safety measures in place. Call light in reach. Will continue to monitor. Last COWS 7 and CIWA 5.
--- NOTE | 2018-07-23 07:30 | NUR ---
START OF SHIFT Pt is a 37 yr old male, AA&Ox4. pt was admitted on 07/17/18 for Benzo/Opiate withdrawal and completed a 4 day Valium and 3 day Subutex taper as ordered. Received report from overnight caregiver nurse. Pt was given Benadryl PRN, Robaxin PRN and Vistaril PRN during the night. Medication was effective. Pt slept for 6 hrs. Last COWS score was 7 and CIWA score was 5. Pt is to be discharged today to [facility]. Pt states of feeling anxious due to discharged but is able to cope with anxiety level. Skin is intact, warm and moist to touch. Safety precautions observed. Call light is within reach. Will continue to monitor.
[2018-07-23 08:07] VITALS: BP 98/54
[2018-07-23] MEDS: MULTIVITAMINS,THERAPEUTIC TABLET PO SCH (08:41)
[2018-07-23] MEDS: GABAPENTIN 400 MG CAPSULE PO SCH (08:41)
[2018-07-23] MEDS: OXCARBAZEPINE 300 MG TABLET PO SCH (08:41)
--- NOTE | 2018-07-23 10:00 | NUR ---
DISCHARGE NOTE Pt is a 37 yr old male, AA&Ox4. Pt was admitting on 07/17/18 for Benzo/Opiate withdrawal and completed a 4 day Valium taper and 3 day Subutex taper. Pt was cooperative with medication regimen and plan of care. Pt was attending group therapy. pt was c/o anxiety due to discharged but states he is able to cope with anxiety level. Pt was educated on discharged summary and prescriptions. Pt was able to verbalize understanding. Pt was escorted off the unit at 0948 in stable condition. Pt was discharged to [facility]. Pt left with all belongings and valuables. No home medications was brought.
== END 2018-07-23 09:48 | DRG 895 ==
LOC: SRC 20:22
PROVIDERS: ADMIT Family Medicine Addiction Medicine; ATTEND Family Medicine Addiction Medicine
PROC: HZ2ZZZZ Detoxification Services for Substance Abuse Treatment (ICD-10-PCS; principal; 2018-07-17)
PROC: HZ41ZZZ Group Counseling for Substance Abuse Treatment, Behavioral (ICD-10-PCS; 2018-07-18)
PROC: HZ31ZZZ Individual Counseling for Substance Abuse Treatment, Behavioral (ICD-10-PCS; 2018-07-18)
DX: F11.23 Opioid dependence with withdrawal (principal); E87.1 Hypo-osmolality and hyponatremia; F13.239 Sedative, hypnotic or anxiolytic dependence with withdrawal, unspecified; F15.23 Other stimulant dependence with withdrawal; F15.21 Other stimulant dependence, in remission; E83.51 Hypocalcemia; F90.9 Attention-deficit hyperactivity disorder, unspecified type; Z91.89 Other specified personal risk factors, not elsewhere classified; F17.210 Nicotine dependence, cigarettes, uncomplicated; F41.1 Generalized anxiety disorder; Z79.899 Other long term (current) drug therapy; B19.20 Unspecified viral hepatitis C without hepatic coma; F32.9 Major depressive disorder, single episode, unspecified; E88.09 Other disorders of plasma-protein metabolism, not elsewhere classified; R73.9 Hyperglycemia, unspecified; R00.1 Bradycardia, unspecified
CPT/HCPCS: 36415; 70030-TC; 80307; 80324; 80345; 80346; 83735; 84443; 85025; 86580; 86592; 86705; 86803; 87340; 87806; 90686; 90732; G0480; Q0163